=== PATIENT | male | born 1965 | race Caucasian/White ===

== ENCOUNTER 2016-12-16 08:23 | Emergency (ER) | payer SELFPAY ==
[2016-12-16 08:35] VITALS: BP 108/65
--- NOTE | 2016-12-16 09:44 | UC ---
Knee Pain HPI - HPI Summary HPI Summary: 51 yo male with left knee pain x 2 weeks fell out of bed also c/o left LQ abd pain when voiding x months Also having trouble achieving an erection - History of Current Complaint Chief Complaint: UCLowerExtremity Stated Complaint: LEFT KNEE PAIN Time Seen by Provider: 12/16/16 09:38 Hx Obtained From: Patient Onset/Duration: Sudden Onset Severity Initially: Moderate Severity Currently: Moderate Pain Intensity: 4 Pain Scale Used: 0-10 Numeric Character: Sharp, Aching Aggravating Factor(s): Movement, Weight Bearing Alleviating Factor(s): Rest Associated Signs And Symptoms: Positive: Swelling Able to Bear Weight: Yes - Allergies/Home Medications Allergies/Adverse Reactions: Allergies Allergy/AdvReac Type Severity Reaction Status Date / Time No Known Allergies Allergy Verified 12/16/16 08:31 PMH/Surg Hx/FS Hx/Imm Hx Previously Healthy: Yes Endocrine History Of: Denies: Diabetes, Thyroid Disease Cardiovascular History Of: Denies: Cardiac Disorders, Hypertension Respiratory History Of: Denies: COPD, Asthma GI/ History Of: Denies: Ulcer - Surgical History Surgical History: Yes Surgery Procedure, Year, and Place: appendectomy - Family History Known Family History: Positive: Hypertension - Social History Alcohol Use: None Substance Use Type: None Smoking Status (MU): Heavy Every Day Tobacco Smoker Type: Cigarettes Amount Used/How Often: 1 PPD Review of Systems Constitutional: Negative Skin: Negative Eyes: Negative ENT: Negative Respiratory: Negative Cardiovascular: Negative Gastrointestinal: Negative Genitourinary: Negative Motor: Negative Neurovascular: Negative Musculoskeletal: Arthralgia Neurological: Negative Psychological: Negative All Other Systems Reviewed And Are Negative: Yes Physical Exam Triage Information Reviewed: Yes Appearance: Well-Appearing, No Pain Distress, Well-Nourished Vital Signs: Initial Vital Signs Temp 99.0 F 12/16/16 08:31 Pulse 84 12/16/16 08:31 Resp 16 12/16/16 08:31 BP 108/65 12/16/16 08:31 Pulse Ox 100 12/16/16 08:31 Vital Signs Reviewed: Yes Eyes: Positive: Conjunctiva Clear ENT: Positive: Hearing grossly normal. Negative: Nasal congestion, Nasal drainage, Trismus, Muffled/hoarse voice Neck: Positive: Supple, Nontender Respiratory: Positive: Lungs clear, Normal breath sounds, No respiratory distress, No accessory muscle use Cardiovascular: Positive: RRR, No Murmur Abdomen Description: Positive: Soft, Other: - no hernia noted. Negative: Nontender - slight llq tenderness, CVA Tenderness (R), CVA Tenderness (L) Bowel Sounds: Positive: Present Musculoskeletal: Positive: ROM Intact, No Edema Neurological: Positive: Alert Psychological Exam: Normal Skin Exam: Normal Knee Pain Course/Dx - Differential Dx/Diagnosis Provider Diagnoses: knee pain/suspect bone contusion. erectile dysfunction/ pain with urination Discharge - Discharge Plan Condition: Stable Disposition: HOME Prescriptions: Naproxen 500 mg PO BID PRN #30 tab PRN Reason: Pain Patient Education Materials: Knee Pain (ED) Forms: *Work Release Referrals: [facility] [place] [facility] [Outside] (you need to find a take down inspector) Jasmyn Carnes MD [Medical Doctor] - (see him for your urologic issues ) John Hines MD [Medical Doctor] - 5 Days (see orthopedist in case you need further imaging/investigation of your knee pain) Additional Instructions: rest elevate ice
--- NOTE | 2016-12-16 10:17 | RAD ---
Indication: Medial LEFT knee pain post fall one week ago. Comparison: No relevant prior exams available on the [facility] PACS for comparison. Technique: LEFT knee: AP, tunnel, lateral, sunrise views. Report: Normal articular alignment and preserved joint spaces. No significant effusion evident. Negative for fracture. Small enthesophyte at the insertion of the quadriceps tendon on the superior pole the patella. Unremarkable soft tissue contours. IMPRESSION: Negative exam.
== END 2016-12-16 10:25 | disposition home or self-care (01) ==
LOC: UCCORT 08:23
DX: M25.562 Pain in left knee (principal); R30.0 Dysuria; N52.9 Male erectile dysfunction, unspecified; R10.32 Left lower quadrant pain; F17.210 Nicotine dependence, cigarettes, uncomplicated
CPT/HCPCS: 81003; 99202; G0463